=== PATIENT | male | born 1935 | race Caucasian/White ===

== ENCOUNTER 2017-12-15 11:22 | Outpatient (CLI) | payer MEDICARE | END 2017-12-15 11:23 | disposition home or self-care (01) | LOC: CP 11:22 | PROVIDERS: ATTEND Internal Medicine Pulmonary Disease | DX: J44.9 Chronic obstructive pulmonary disease, unspecified (principal) | CPT/HCPCS: 94060; 94727; 94729 ==

== ENCOUNTER 2018-09-09 13:18 | Outpatient (CLI) | payer MEDICARE | END 2018-09-09 13:19 | disposition home or self-care (01) | LOC: CP 13:18 | PROVIDERS: ATTEND Internal Medicine Pulmonary Disease | DX: J44.9 Chronic obstructive pulmonary disease, unspecified (principal) | CPT/HCPCS: 94060; 94727; 94729 ==